=== PATIENT | male | born 1985 | race Hispanic/Latino ===

== ENCOUNTER 2017-08-26 05:53 | Day surgery (SDC) | payer MEDICAID ==
[~2017-08-26] VITALS: Ht 170.2 cm; Wt 77.1 kg
[2017-08-26] MEDS ORDERED: WHEA1POW2 PO (07:47)
[2017-08-26] MEDS ORDERED: LEVE500S7 PO (07:47)
[2017-08-26] MEDS ORDERED: TRAZ-185 PO (07:47)
[2017-08-26] MEDS ORDERED: RISP1TAB89 PO (07:47)
[2017-08-26] MEDS ORDERED: MIDAZOLAM HCL 1 MG/ML 2ML VIAL ONE (08:32)
== END 2017-08-26 09:45 | disposition home or self-care (01) ==
LOC: ENDO 05:53 → DAH 06:35 → ENDO 09:45
PROVIDERS: ATTEND Internal Medicine
DX: K85.00 Idiopathic acute pancreatitis without necrosis or infection (principal); Z79.899 Other long term (current) drug therapy; G40.909 Epilepsy, unspecified, not intractable, without status epilepticus
CPT/HCPCS: 43237; A4606; J2250; 43231

== ENCOUNTER 2017-08-30 04:04 | Emergency (ER) | payer MEDICAID ==
[~2017-08-30 04:04] MED LIST: LEVE500S7 PO; RISP1TAB89 PO; TRAZ-185 PO; WHEA1POW2 PO
[2017-08-30] MEDS ORDERED: ZIPRASIDONE MESYLATE 20 MG/VIAL IM ONE (04:13)
[2017-08-30] MEDS ORDERED: LORAZEPAM 2 MG/ML 1 ML VIAL ONE (04:35)
[2017-08-30 05:39] LABS: BASOPHILS % (AUTO) 0.5 % (0.0-5.0); EOSINOPHILS % (AUTO) 1.4 % (0.0-8.0); HEMATOCRIT 37.1 % (42-54); LYMPHOCYTES % (AUTO) 31.1 % (21.0-51.0); MEAN CORPUSCULAR HEMOGLOBIN 32.3 pg (27.0-33.0); MEAN CORPUSCULAR HGB CONC 35.4 g/dL (32.0-36.0); MEAN CORPUSCULAR VOLUME 91.5 fL (79-99); MONOCYTES % (AUTO) 7.6 % (3.0-13.0); NEUTROPHILS % (AUTO) 59.4 % (40.0-77.0); NUCLEATED RED BLOOD CELLS 0.1 % (0.0-0.19); PLATELET COUNT (AUTO) 206 K/uL (130-400); RED BLOOD CELL COUNT(AUTO) 4.06 MIL/uL (4.50-6.20); RED CELL DISTRIBUTION WIDTH 13.2 % (11.0-15.5); WHITE BLOOD COUNT (AUTO) 5.4 K/uL (4.8-10.8)
[2017-08-30 05:49] LABS: CREATININE 0.8 mg/dL (0.5-1.5); POTASSIUM 3.9 mmol/L (3.5-5.1)
[2017-08-30 05:53] LABS: ALBUMIN 3.7 g/dL (3.5-5.0); BILIRUBIN,DIRECT 0.1 mg/dL (0.0-0.3); BILIRUBIN,TOTAL 0.7 mg/dL (0.2-1.0); TOTAL PROTEIN, SERUM 7.1 g/dL (6.0-8.3)
[2017-08-30 08:17] LABS: APPEARANCE,URINE Clear (CLEAR); BILIRUBIN,URINE Negative (NEGATIVE); COLOR,URINE Yellow (YELLOW); GLUCOSE, URINE (UA) Negative (NEGATIVE); KETONES,URINE Negative (NEGATIVE); LEUKOCYTE ESTERASE ,URINE Negative (NEGATIVE); NITRATE,URINE Negative (NEGATIVE); OCCULT BLOOD,URINE Negative (NEGATIVE); PROTEIN,URINE Negative (NEGATIVE); UROBILINOGEN,URINE 0.2 mg/dL (0.2-1.0)
[2017-08-31] MEDS ORDERED: WHEA1POW2 PO (06:16)
[2017-08-31] MEDS ORDERED: HYOS-14 PO (06:16)
[2017-08-31] MEDS ORDERED: clonidine (06:16)
== END 2017-08-30 09:37 | disposition home or self-care (01) ==
LOC: EDH 04:04
DX: R10.9 Unspecified abdominal pain (principal); R62.50 Unspecified lack of expected normal physiological development in childhood; R45.1 Restlessness and agitation
CPT/HCPCS: 36415; 74176; 80048; 80076; 81003; 83690; 85025; 96372 ×2; 99285; J2060; J3486

== ENCOUNTER 2017-08-31 05:30 | Day surgery (SDC) | payer MEDICAID ==
[~2017-08-31] VITALS: Ht 170.2 cm; Wt 77.1 kg
[2017-08-31] MEDS ORDERED: SODIUM CHLORIDE 0.9% 1000ML 1,000 ML IV ONE (05:41)
[2017-08-31] MEDS ORDERED: HYOS-14 PO ×2 (06:16)
[2017-08-31] MEDS ORDERED: clonidine ×2 (06:16)
[2017-08-31] MEDS ORDERED: WHEA1POW2 PO ×2 (06:16)
[2017-08-31] MEDS ORDERED: LORAZEPAM 2 MG/ML 1 ML VIAL ONE (06:18)
[2017-08-31 06:32] VITALS: BP 127/79
[2017-08-31] MEDS ORDERED: MIDAZOLAM HCL 1 MG/ML 2ML VIAL ONE (07:08)
[2017-08-31 07:21] VITALS: BP 108/64
== END 2017-08-31 07:59 | disposition home or self-care (01) ==
LOC: ENDO 05:30 → DAH 05:30 → ENDO 07:59
PROVIDERS: ATTEND Internal Medicine Gastroenterology
DX: K85.00 Idiopathic acute pancreatitis without necrosis or infection (principal); K86.9 Disease of pancreas, unspecified; K31.89 Other diseases of stomach and duodenum; G40.909 Epilepsy, unspecified, not intractable, without status epilepticus; Z79.899 Other long term (current) drug therapy; F79 Unspecified intellectual disabilities
CPT/HCPCS: 43237; A4606; J2060; J2250; J7030; 43231

== ENCOUNTER 2018-06-26 19:37 | Emergency (ER) | payer MEDICAID ==
[~2018-06-26 19:37] MED LIST changes: +HYOS-14 PO; +clonidine
[2018-06-26 20:16] LABS: APPEARANCE,URINE CLEAR (CLEAR); BILIRUBIN,URINE NEGATIVE (NEGATIVE); COLOR,URINE YELLOW (YELLOW); GLUCOSE, URINE (UA) NEGATIVE (NEGATIVE); KETONES,URINE NEGATIVE (NEGATIVE); LEUKOCYTE ESTERASE ,URINE NEGATIVE (NEGATIVE); NITRATE,URINE NEGATIVE (NEGATIVE); OCCULT BLOOD,URINE NEGATIVE (NEGATIVE); PH,URINE 6.5 (5.0-8.0); PROTEIN,URINE >=300 mg/dL (NEGATIVE); UROBILINOGEN,URINE 0.2 mg/dL (0.2-1.0)
[2018-06-26 20:26] LABS: BACTERIA,URINE Rare /HPF (None Seen); MUCUS,URINE Moderate LPF (None Seen); RBC,URINE None Seen /HPF (0-1)
[2018-06-26 20:27] LABS: AMPHET/METH SCREEN,URINE NEGATIVE (NEGATIVE); BARBITURATE SCREEN, URINE NEGATIVE (NEGATIVE); BENZODIAZEPINES SCREEN,URINE NEGATIVE (NEGATIVE); CANNABINOID SCREEN,URINE NEGATIVE (NEGATIVE); COCAINE SCREEN,URINE NEGATIVE (NEGATIVE); OPIATE SCREEN,URINE NEGATIVE (NEGATIVE); PHENCYCLIDINE SCREEN,URINE NEGATIVE (NEGATIVE); SPERM,URINE Moderate /HPF (None Seen)
[2018-06-26] MEDS ORDERED: ONDANSETRON ODT 4 MG TAB ONE (20:45)
== END 2018-06-26 22:14 | disposition home or self-care (01) ==
LOC: EDH 19:37
DX: T43.631A Poisoning by methylphenidate, accidental (unintentional), initial encounter (principal); Y92.009 Unspecified place in unspecified non-institutional (private) residence as the place of occurrence of the external cause
CPT/HCPCS: 80305; 81001